=== PATIENT | female | born 1985 | race Caucasian/White ===

== ENCOUNTER 2017-03-06 02:31 | Emergency (ER) | payer OTHER ==
[~2017-03-06] VITALS: Ht 165.1 cm; Wt 81.6 kg
[2017-03-06 02:31] VITALS: BP_SYST 138
--- NOTE | 2017-03-06 02:31 | NUR ---
Patient to ER 6 to await MD evaluation.
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
--- NOTE | 2017-03-06 03:00 | NUR ---
Dr Becker at bedside to evaluate patient.
--- NOTE | 2017-03-06 03:15 | NUR ---
Written and verbal consent obtained from patient for blood alcohol, name and verified by patient. Disinfected patient's skin with Povidone-Iodine that did not contain alcohol or other volatile organic compound. Collected the blood from the subject named by venipuncture, in the presence of Officer Jessica Parra Number [id number]. Used a sterile, dry hypodermic needle and dry vacuum blood collection. The dry vacuum blood collection was supplied by the officer named above. Withdrew a specimen of blood from Left AC of the subject named above. Inverted the blood tube several times to ensure that the preservative and anticoagulant were thoroughly mixed in the blood specimen. I initialed the blood tube label for identification. The labeled blood tube was handed directly to the Officer named above. The blood tube stopper remained in place while I had possession of the blood tube. The Officer placed tube into envelope and sealed it in my presence. Envelope initialed by myself and Officer named above. Patient tolerated well, bandage applied, and bleeding controlled.
[2017-03-06 03:20] VITALS: BP_SYST 130
--- NOTE | 2017-03-06 03:20 | NUR ---
Patient given written and verbal discharge instructions and verbalizes understanding. ER MD discussed with patient the results and treatment provided. Patient in stable condition. ID arm band removed. No RX given. Patient educated on pain management and to follow up with PMD. Pain Scale 0. Opportunity for questions provided and answered. Patient was seen and evaluated by Dr Becker, who medically cleared the patient for [facility]. Patient remains in custody of [facility], and in handcuffs. Patient left ER ambulating with slow, steady gait in no acute distress.
== END 2017-03-06 03:20 ==
LOC: SED 02:31
DX: Z02.89 Encounter for other administrative examinations (principal); V89.2XXA Person injured in unspecified motor-vehicle accident, traffic, initial encounter; Y93.89 Activity, other specified; Y92.410 Unspecified street and highway as the place of occurrence of the external cause; Y99.8 Other external cause status
CPT/HCPCS: 99283